=== PATIENT | male | born 1985 | race African-American/Black ===

== ENCOUNTER → 2018-09-24 | Outpatient (CLI) | payer OTHER ==
--- NOTE | 2018-09-24 16:26 | RAD ---
PQRS Compliance statement: One or more of the following individualized dose reduction techniques were utilized for this examination: 1. Automated exposure control. 2. Adjustment of the mA and/or kV according to patient size. 3. Use of iterative reconstruction technique. Indication:Pulmonary nodules. TECHNIQUE: CT chest without IV contrast with multiplanar reformats. COMPARISON:None FINDINGS: Heart is normal in size. No pericardial or effusion. Clear neck base. No enlarged axillary, mediastinal adenopathy. Evaluation of hilar lymphadenopathy is limited due to lack of IV contrast. Central airways are patent. 3 mm nodule in the subpleural right lower lobe (series 8 image 197). Pleural-based nodular opacity measuring 4 mm in the right lower lobe (series 8 image 181). Cluster of central lobular nodules is seen in the superior segment of the left lower lobe (series 8 image 138). 3 mm nodule in the right minor fissure (series 8 image 154). Visualized noncontrast sections through the liver, spleen, gallbladder, pancreas, adrenals and kidneys are within normal limits. No suspicious bony lesion. IMPRESSION: 1. Couple of right lower lobe nodules and cluster of centrilobular nodules in the left lower lobe likely infectious or inflammatory although metastatic disease is not entirely ruled out. Follow-up CT chest in 3 months recommended. Electronically signed by: Apollo Young DO (09/24/2018 4:23 PM) [facility]
== END | disposition home or self-care (01) ==
LOC: CT 15:48
PROVIDERS: ATTEND Family Medicine
DX: R91.8 Other nonspecific abnormal finding of lung field (principal)
CPT/HCPCS: 71250